=== PATIENT | female | born 1990 | race Caucasian/White ===

== ENCOUNTER 2019-08-18 22:34 | Outpatient (REF) | payer MEDICAID, SELFPAY ==
[2019-08-20 13:47] LABS: Chlamydia Result Negative (Negative)
[2019-08-20 15:32] LABS: GC Result Negative (Negative)
== END 2019-08-18 22:54 ==
LOC: NCHCN 22:34
PROVIDERS: Visit Provider Registered Nurse
DX: Z11.3 Encounter for screening for infections with a predominantly sexual mode of transmission (principal)
CPT/HCPCS: 87491; 87591

== ENCOUNTER 2019-08-23 02:05 | Outpatient (CLI) | payer MEDICAID, SELFPAY ==
--- NOTE | 2019-08-23 13:42 | DI.US_ITS ---
EXAM: US SOFT TISSUE HEAD OR NECK CLINICAL HISTORY: SUBCUTANEOUS MASS OF HEAD AND NECK SOFT TISSUE, R22.9 TECHNIQUE: Ultrasound performed using standard protocol. COMPARISON: No exams were available for comparison FINDINGS: Palpable abnormality of the left neck was scanned. This corresponds to normal-appearing lymph node m easuring 2 x 0.4 x 1.9 cm. Normal fatty hilum is maintained. IMPRESSION: 2 centimeter lymph node corresponding to the palpable abnormality. No suspicious features.
--- NOTE | 2019-08-23 13:42 | DI.US_ITS ---
EXAM: US SOFT TISS ABD WALL/LOW BACK CLINICAL HISTORY: UPPER BACK SUBCUTANEOUS MASS, R22.9 TECHNIQUE: Ultrasound performed using standard protocol. COMPARISON: No exams were available for comparison FINDINGS: The palpable area of the subcutaneous tissues of the upper back was scanned. The palpable abnormalit y corresponds to a 3.6 x 0.8 x 3.3 centimeter ovoid circumscribed lesion with echogenicity consistent with fat. Findings are consistent with a lipoma. IMPRESSION: A 3.6 centimeter lipoma corresponding to the palpable abnormality.
== END 2019-08-23 02:25 ==
PROVIDERS: PCP Registered Nurse; Visit Provider Registered Nurse
DX: R22.2 Localized swelling, mass and lump, trunk (principal); R22.1 Localized swelling, mass and lump, neck; D17.39 Benign lipomatous neoplasm of skin and subcutaneous tissue of other sites; R59.0 Localized enlarged lymph nodes
CPT/HCPCS: 76536; 76705

== ENCOUNTER 2021-03-12 12:22 | Outpatient (REF) | payer MEDICAID, SELFPAY ==
[2021-03-13 13:08] LABS: Chlamydia Result Negative (Negative); GC Result Negative (Negative)
== END 2021-03-12 12:23 | disposition home or self-care (01) ==
LOC: NCHCN 12:22
PROVIDERS: PCP Registered Nurse; Visit Provider Registered Nurse
DX: Z11.3 Encounter for screening for infections with a predominantly sexual mode of transmission (principal)
CPT/HCPCS: 87491; 87591